=== PATIENT | female | born 1955 | race Caucasian/White ===

== ENCOUNTER 2020-12-05 11:36 | Emergency (ER) | payer OTHER, SELFPAY ==
[2020-12-05 11:40] VITALS: BP 153/77; PULSE 80; RESP 18; TEMP 35.9; O2SAT 97
--- NOTE | 2020-12-05 11:47 | ED.SKABFB ---
HPI - Skin/Abscess/Foreign Bdy General Chief complaint: Skin/Abscess/Foreign Body Stated complaint: bug bite on thigh Time Seen by Provider: 12/05/20 11:47 Source: patient and RN notes reviewed Mode of arrival: ambulatory Limitations: no limitations History of Present Illness HPI narrative: 65-year-old female presents to [facility] with complaints of a bug bite to the inner left thigh for the last week. States that she felt a sting and it has been itchy since, about 1 week. Related Data Home Medications Medication Instructions Recorded Confirmed albuterol sulfate 2 puff INHALATION Q4H PRN 12/05/20 12/05/20 atorvastatin 80 mg PO DAILY 12/05/20 12/05/20 escitalopram oxalate 10 mg PO DAILY 12/05/20 12/05/20 lisinopril 20 mg PO DAILY 12/05/20 12/05/20 mirtazapine 15 mg PO DAILY 12/05/20 12/05/20 naproxen 500 mg PO BID 12/05/20 12/05/20 tramadol 50 mg PO DAILY 12/05/20 12/05/20 Allergies Allergy/AdvReac Type Severity Reaction Status Date / Time Penicillins Allergy Unknown N/V, RASH Verified 01/20/19 10:54 Review of Systems Review of Systems: Narrative: CONSTITUTIONAL: Denies fever, chills, or sweats. EYES: Denies visual changes, redness, or discharge. ENT: Denies rhinorrhea, congestion, sore throat, or otalgia. CARDIOVASCULAR: Denies chest pain, palpitations, or edema. RESPIRATORY: Denies cough or dyspnea. GASTROINTESTINAL: Denies abdominal pain, nausea, vomiting, or diarrhea. GENITOURINARY: Denies dysuria or hematuria. SKIN: Denies rash. Reports itching to the left inner thigh MUSCULOSKELETAL: Denies back pain, joint pain, or myalgia. NEUROLOGIC: Denies headache, numbness, or weakness. PSYCHIATRIC: Denies anxiety or depression. All other systems reviewed are negative, except as documented in HPI. [facility] Social History Social History Gender identity (if verbalized by the patient): Female Comments At the time of my signature, I reviewed and agree with the nursing past medical, surgical, social, and family history. There is no relevant family history pertinent to the patient complaint. Exam Narrative: Exam Narrative: GENERAL: This is a well-nourished, well-developed patient, in no apparent distress. HEAD: normocephalic, atraumatic. EYES: PERRL. Sclera clear/white. Vision is grossly intact. EARS: External ears normal. CARDIOVASCULAR: Regular rate and rhythm without murmurs, gallops, or rubs. RESPIRATORY: Clear to auscultation. Breath sounds equal bilaterally. No wheezes, rales, or rhonchi. GASTROINTESTINAL: Abdomen soft, non-tender. SKIN: warm, dry, intact. Bruising and small scratches noted to the left inner thigh. No increased redness, swelling or warmth to the area. Measures 3 cm x 4 cm. NEURO: awake, alert, and oriented to person, place and time. There were no obvious focal neurologic abnormalities. EXTREMITIES: No joint tenderness, effusion, or edema noted. Course Vital Signs Vital signs: Vital Signs Temperature 96.7 F L 12/05/20 11:40 Pulse Rate 80 12/05/20 11:40 Respiratory Rate 18 12/05/20 11:40 Blood Pressure 153/77 H 12/05/20 11:40 Pulse Oximetry 97 12/05/20 11:40 Temperature 96.7 F L 12/05/20 11:40 Pulse Rate 80 12/05/20 11:40 Respiratory Rate 18 12/05/20 11:40 Blood Pressure 153/77 H 12/05/20 11:40 Pulse Oximetry 97 12/05/20 11:40 Reviewed patient has a history of hypertension. No chest pain, blurry vision or change in vision. MDM - Skin/Abscess/Foreign Bdy MDM Narrative Medical decision making narrative: Discharge instructions reviewed with patient, as well as provided in writing per nursing staff. The instructions also include specific and strict return/GO TO THE ER as well as f/u information. All questions have been answered, and the patient deny any further questions with discharge and discharge plan. Differential Diagnosis Differential diagnosis: Likely abscess of skin or subcutaneous tissue, dermatophytosis
== END 2020-12-05 12:02 | disposition home or self-care (01) ==
PROVIDERS: Emergency Provider Nurse Practitioner; PCP Family Medicine
DX: S70.12XA Contusion of left thigh, initial encounter (principal); X58.XXXA Exposure to other specified factors, initial encounter; S70.362A Insect bite (nonvenomous), left thigh, initial encounter; W57.XXXA Bitten or stung by nonvenomous insect and other nonvenomous arthropods, initial encounter; I10 Essential (primary) hypertension; J45.909 Unspecified asthma, uncomplicated; M19.90 Unspecified osteoarthritis, unspecified site; F41.9 Anxiety disorder, unspecified; F32.9 Major depressive disorder, single episode, unspecified
CPT/HCPCS: 99213; G0463

== ENCOUNTER 2021-08-10 10:54 | Emergency (ER) | payer MEDICARE, MEDICAID, SELFPAY ==
[2021-08-10 11:04] VITALS: BP 142/85; PULSE 86; RESP 18; TEMP 36.3; O2SAT 97
[2021-08-10 11:11] VITALS: BP 142/85; PULSE 86; RESP 18; TEMP 36.3; O2SAT 97
--- NOTE | 2021-08-10 11:30 | ED.URI ---
HPI - URI/Sore Throat General Chief Complaint: Upper Respiratory Infection Stated Complaint: sinus infection Time Seen by Provider: 08/10/21 11:16 Source: patient and RN notes reviewed Mode of arrival: ambulatory Limitations: no limitations History of Present Illness HPI Narrative: Patient presents today with a 3-day history of rhinorrhea, congestion, frontal headache, cough with clear sputum, postnasal drip. Denies fever, sore throat. She has been taking Robitussin and Tylenol with mild relief. History of asthma. Denies sick contacts. MD elicited complaint: cough, nasal congestion and sinus pain Related Data Home Medications Medication Instructions Recorded Confirmed atorvastatin 80 mg PO DAILY 12/05/20 08/10/21 escitalopram oxalate 10 mg PO DAILY 12/05/20 08/10/21 mirtazapine 15 mg PO DAILY 12/05/20 08/10/21 cimetidine 400 mg PO HS 08/10/21 08/10/21 Allergies Allergy/AdvReac Type Severity Reaction Status Date / Time Penicillins Allergy Unknown N/V, RASH Verified 08/10/21 11:09 Review of Systems Review of Systems: CONSTITUTIONAL: Denies body aches, fever, chills, or sweats. EYES: Denies visual changes, redness, or discharge. ENT: Denies sore throat, or otalgia.+ Rhinorrhea, congestion, postnasal drip CARDIOVASCULAR: Denies chest pain, palpitations, or edema. RESPIRATORY: Denies dyspnea.+ Cough GASTROINTESTINAL: Denies abdominal pain, nausea, vomiting, or diarrhea. GENITOURINARY: Denies dysuria or hematuria. SKIN: Denies rash, itching, or wounds. MUSCULOSKELETAL: Denies back pain, joint pain, or myalgia. NEUROLOGIC: Denies numbness, tingling, or weakness.+ Headache PSYCH: Denies depression or anxiety. [facility] Past Medical History Medical History (Updated 08/10/21 @ 11:34 by Zina Zamora, TAMI, BC) Asthma Social History Social History Gender identity (if verbalized by the patient): Female Comments At time of signature, I have reviewed and agree with nursing past medical, surgical, social and family history unless otherwise noted. Please see nursing chart for further information. There is no relevant family history pertinent to the presenting complaint Exam Narrative: GENERAL: Well-appearing, well-nourished, and in no acute distress. HEAD: Normocephalic, atraumatic. EYES: EOMI. No redness or drainage. Conjunctivae normal. ENT: Mucous membranes pink and moist. Nares congested. No rhinorrhea. TMs normal bilaterally. Throat mildly erythematous without edema or exudate. Uvula midline. NECK: Normal AROM. Supple. No lymphadenopathy. CHEST: No respiratory distress. Clear to auscultation. HEART: Regular rate and rhythm. No murmur appreciated. Normal peripheral pulses. EXTREMITIES: Normal range of motion. No edema. SKIN: Warm, dry, no rash. Capillary refill normal. Normal skin turgor. NEURO: No focal deficits. Alert and oriented x3. Gait steady. PSYCH: Normal affect. No signs of depression or anxiety. Course Vital Signs Vital signs: Vital Signs Temperature 97.4 F L 08/10/21 11:04 Pulse Rate 86 08/10/21 11:04 Respiratory Rate 18 08/10/21 11:04 Blood Pressure 142/85 H 08/10/21 11:04 Pulse Oximetry 97 08/10/21 11:04 Temperature 97.4 F L 08/10/21 11:11 Pulse Rate 86 08/10/21 11:11 Respiratory Rate 18 08/10/21 11:11 Blood Pressure 142/85 H 08/10/21 11:11 Pulse Oximetry 97 08/10/21 11:11 Reviewed. Pt has been instructed to follow up with her PCP regarding her elevated blood pressure today. MDM - URI/Sore Throat Differential Diagnosis Differential diagnosis: Likely upper respiratory infection, otitis media, sinusitis, viral infection and bronchitis Critical Care Time Critical Care Time Critical Care Time: No Discharge Plan Discharge Clinical Impression: Viral sinusitis Patient Disposition: Home, Self-Care Condition: Stable Instructions: Sinusitis (ED) Additional Instructions: Jose
== END 2021-08-10 11:38 | disposition home or self-care (01) ==
PROVIDERS: Emergency Provider Nurse Practitioner; PCP Family Medicine
DX: J32.9 Chronic sinusitis, unspecified (principal); J45.909 Unspecified asthma, uncomplicated
CPT/HCPCS: 99211; G0463

== ENCOUNTER 2021-11-24 14:24 | Emergency (ER) | payer MEDICARE, MEDICAID, SELFPAY ==
--- NOTE | ~2021-11-24 | XR_ITS ---
EXAMINATION: XR shoulder RT min 2V DATE: 11/24/2021 14:56 INDICATION: Right shoulder pain. Fall. TECHNIQUE: 5 views of right shoulder were obtained. COMPARISON: None. FINDINGS: Bone alignment is normal. No fracture. Joint spaces are well maintained. IMPRESSION: 1. Normal right shoulder. Reviewed, dictated and finalized at location A. RY KILN OPERATOR IMPRESSION: 1. Normal right shoulder.
[2021-11-24 14:34] VITALS: BP 123/79; PULSE 87; RESP 16; TEMP 36.9; O2SAT 100
--- NOTE | 2021-11-24 15:00 | ED.UPPEXIN ---
HPI - Extremity Injury (Upper) General Chief Complaint: Extremity Injury, Upper Stated Complaint: right shoulder injury Time Seen by Provider: 11/24/21 14:50 Source: patient Mode of arrival: ambulatory Limitations: no limitations History of Present Illness HPI narrative: 66-year-old female presented for complaint of right shoulder pain for over 1 week after fall. States she slipped on the ice a week ago and tried to catch herself, causing her to land on the right arm, she states she hit her head but did not lose consciousness. Endorses headache for a few days after but states she is without headache, nausea, vomiting, dizziness, confusion. Endorses 9 out of 10 right shoulder pain, pain is constant and sharp, worse with movement. Endorses decreased range of motion due to pain. States she has taken ibuprofen, Tylenol, and [id number] pain reliever gel which has not help symptoms. She denies numbness, tingling, weakness of the right upper extremity. Related Data Home Medications Medication Instructions Recorded Confirmed atorvastatin 80 mg PO DAILY 12/05/20 11/24/21 escitalopram oxalate 10 mg PO DAILY 12/05/20 11/24/21 mirtazapine 15 mg PO DAILY 12/05/20 11/24/21 albuterol sulfate 2 puff INHALATION Q4-6H PRN 11/24/21 11/24/21 ergocalciferol (vitamin D2) 1,250 mcg PO WEEKLY 11/24/21 11/24/21 famotidine 20 mg PO DAILY 11/24/21 11/24/21 fluticasone propionate 1 spray INTRANASAL DAILY 11/24/21 11/24/21 lisinopril 20 mg PO DAILY 11/24/21 11/24/21 Allergies Allergy/AdvReac Type Severity Reaction Status Date / Time Penicillins Allergy Unknown N/V, RASH Verified 11/24/21 14:38 Review of Systems Review of Systems: CONSTITUTIONAL: Denies body aches, fever, chills EYES: Denies visual changes ENT: Denies rhinorrhea, congestion CARDIOVASCULAR: Denies chest pain, palpitations, or edema. RESPIRATORY: Denies cough or dyspnea. GASTROINTESTINAL: Denies abdominal pain, nausea, vomiting, or diarrhea. SKIN: Denies rash, itching, or wounds. MUSCULOSKELETAL: Endorses right shoulder pain NEUROLOGIC: Denies headache, numbness, tingling, or weakness. PSYCH: Denies depression or anxiety. All systems reviewed & are unremarkable except as noted in HPI and below PMFSH Past Medical History Medical History Asthma Social History Social History Gender identity (if verbalized by the patient): Female Comments At time of signature, I have reviewed and agree with nursing past medical, surgical, social and family history unless otherwise noted. Please see nursing chart for further information. There is no relevant family history pertinent to the presenting complaint Exam Narrative: GENERAL: Well-appearing, well-nourished, and in no acute distress. HEAD: Normocephalic, atraumatic. EYES: PERRLA, conjunctivae clear NECK: Supple. CHEST: Speaks in full sentences. No respiratory distress. HEART: Regular rate and rhythm. Normal and equal peripheral pulses. EXTREMITIES: Right upper extremity has normal strength and sensation, range of motion is equal bilaterally but endorses pain with movement. Pain with palpation to superior and posterior aspects of right shoulder, No edema or ecchymosis, No open wounds, skin tenting, or obvious deformity; right shoulder appears lower than left; pulse palpable and equal bilaterally, skin warm, dry, pink. Capillary refill less than 3 seconds. SKIN: Warm, dry, no rash. NEURO: Alert and oriented x3. PSYCH: Normal mood and affect Course Course Emergency Course: Patient is aware of diagnosis, understands and agrees to treatment plan. Anticipatory guidance given. Patient agrees to follow-up as directed and is aware of reasons to seek care at the emergency department. Portions of this record may have been created with voice recognition software Level of Care: Express Care Visit Vital Signs Vital signs: Vi
== END 2021-11-24 15:20 | disposition home or self-care (01) ==
PROVIDERS: Emergency Provider Nurse Practitioner Family; PCP Family Medicine
DX: M25.511 Pain in right shoulder (principal); J45.909 Unspecified asthma, uncomplicated
CPT/HCPCS: 73030; 99213; A4565; G0463

== ENCOUNTER 2022-09-20 08:10 | Emergency (ER) | payer MEDICARE, SELFPAY ==
--- NOTE | 2022-09-20 08:12 | ED.URI ---
HPI - URI/Sore Throat General Chief Complaint: Upper Respiratory Infection Stated Complaint: Headache/Sore Throat Time Seen by Provider: 09/20/22 08:12 Source: patient and RN notes reviewed History of Present Illness HPI Narrative: patient is 67-year-old female presents to urgent care with complaints of congestion, headache, cough and sore throat. Patient states that started 5 days ago and she has been using Robitussin and Tylenol. Denies any known fevers or ill exposures. Denies any nausea or vomiting. No other acute complaints. No acute distress noted. Patient aware of the plan of care. Some parts of this dictation were generated by voice recognition software and may contain typographical and/or grammatical inaccuracies. Related Data Home Medications Medication Instructions Recorded Confirmed atorvastatin 80 mg tablet 80 mg PO DAILY 12/05/20 09/20/22 escitalopram oxalate 10 mg tablet 10 mg PO DAILY 12/05/20 09/20/22 mirtazapine 15 mg tablet 15 mg PO DAILY 12/05/20 09/20/22 albuterol sulfate 90 mcg/actuation 2 puff inhalation Q4-6H PRN 11/24/21 09/20/22 aerosol inhaler Shortness Of Breath Or Wheezing ergocalciferol (vitamin D2) 1,250 1,250 mcg PO WEEKLY 11/24/21 09/20/22 mcg (50,000 unit) capsule famotidine 20 mg tablet 20 mg PO DAILY 11/24/21 09/20/22 lisinopril 20 mg tablet 20 mg PO DAILY 11/24/21 09/20/22 Allergies Allergy/AdvReac Type Severity Reaction Status Date / Time Penicillins Allergy Unknown N/V, RASH Verified 09/20/22 08:24 Review of Systems Review of Systems: CONSTITUTIONAL: Denies fever, chills, or sweats. EYES: Denies visual changes, redness, or discharge. ENT: reports of sinus congestion, sore throat CARDIOVASCULAR: Denies chest pain, palpitations, or edema. RESPIRATORY: reports of cough without dyspnea GASTROINTESTINAL: Denies abdominal pain, nausea, vomiting, or diarrhea. GENITOURINARY: Denies dysuria or hematuria. SKIN: Denies rash or itching. MUSCULOSKELETAL: Denies back pain, joint pain, or myalgia. NEUROLOGIC: Reports of headache All other systems reviewed are negative, except as documented in HPI. [facility] Past Medical History Medical History Asthma Social History Social History Gender identity (if verbalized by the patient): Female Comments At the time of my signature, I reviewed and agree with the nursing past medical, surgical, social, and family history. There is no relevant family history pertinent to the patient complaint. Exam Narrative: GENERAL: This is a well-nourished, well-developed patient, in no apparent distress. HEAD: normocephalic, atraumatic. EYES: PERRL. Sclera clear/white. Vision is grossly intact. EARS: External ears normal, auditory canals clear and without drainage, TMs normal without perforation. Hearing grossly intact. NOSE: External nose normal with no obvious nasal discharge, nares without redness, clear rhinorrhea. THROAT: Mucous membranes moist, mild erythema to the posterior pharynx with moderate postnasal drainage NECK: Neck supple, non-tender without lymphadenopathy CARDIOVASCULAR: Regular rate and rhythm without murmurs, gallops, or rubs. RESPIRATORY: scant inspiratory wheeze bibasilar SKIN: warm, intact with no suspicious lesions or rash, good texture and turgor. NEURO: awake, alert, and oriented to person, place and time. There were no obvious focal neurologic abnormalities. EXTREMITIES: No clubbing, cyanosis, or edema. Course Course Level of Care: Express Care Visit Vital Signs Vital signs: Vital Signs Temperature 97.4 F L 09/20/22 08:22 Pulse Rate 84 09/20/22 08:22 Respiratory Rate 16 09/20/22 08:22 Blood Pressure 168/101 H 09/20/22 08:22 Pulse Oximetry 99 09/20/22 08:22 Temperature 97.4 F L 09/20/22 08:22 Pulse Rate 84 09/20/22 08:22 Respiratory Rate 16 09/20/22 08:22 Blood Pressure
[2022-09-20 08:22] VITALS: BP 168/101; PULSE 84; RESP 16; TEMP 36.3; O2SAT 99
== END 2022-09-20 08:34 | disposition home or self-care (01) ==
PROVIDERS: Emergency Provider Nurse Practitioner Family; PCP Family Medicine
DX: J00 Acute nasopharyngitis [common cold] (principal); R05.1 Acute cough; J45.909 Unspecified asthma, uncomplicated
CPT/HCPCS: 99213; G0463

== ENCOUNTER 2023-01-25 10:37 | Emergency (ER) | payer MEDICARE, SELFPAY ==
[2023-01-25 10:42] VITALS: BP 119/82; PULSE 86; RESP 16; TEMP 36.5; O2SAT 97
--- NOTE | 2023-01-25 10:44 | ED.EYEPROB ---
HPI - Eye Problem General Chief complaint: Eye Problems Stated complaint: Eye Problem Time Seen by Provider: 01/25/23 10:40 Source: patient and RN notes reviewed History of Present Illness HPI Narrative: Patient is a 68-year-old female presents to urgent care with complaints of right eye irritation and clear drainage. Patient states it started a week ago and she has been taking Benadryl without relief. Denies any vision changes. Patient does not wear glasses or contacts. Denies any injury to the eye. No other acute complaints. Patient aware of the plan care. Some parts of this dictation were generated by voice recognition software and may contain typographical and/or grammatical inaccuracies. Related Data Home Medications Medication Instructions Recorded Confirmed atorvastatin 80 mg tablet 80 mg PO DAILY 12/05/20 01/25/23 escitalopram oxalate 10 mg tablet 10 mg PO DAILY 12/05/20 01/25/23 mirtazapine 15 mg tablet 15 mg PO DAILY 12/05/20 01/25/23 albuterol sulfate 90 mcg/actuation 2 puff inhalation Q4-6H PRN 11/24/21 01/25/23 aerosol inhaler Shortness Of Breath Or Wheezing ergocalciferol (vitamin D2) 1,250 1,250 mcg PO WEEKLY 11/24/21 01/25/23 mcg (50,000 unit) capsule famotidine 20 mg tablet 20 mg PO DAILY 11/24/21 01/25/23 lisinopril 20 mg tablet 30 mg PO DAILY 11/24/21 01/25/23 Allergies Allergy/AdvReac Type Severity Reaction Status Date / Time Penicillins Allergy Unknown N/V, RASH Verified 01/25/23 10:53 Review of Systems Review of Systems: CONSTITUTIONAL: Denies fever, chills, or sweats. EYES: Reports of clear drainage and irritation to the right eye ENT: Denies rhinorrhea, congestion, sore throat, or otalgia. CARDIOVASCULAR: Denies chest pain, palpitations, or edema. RESPIRATORY: Denies cough or dyspnea. GASTROINTESTINAL: Denies abdominal pain, nausea, vomiting, or diarrhea. GENITOURINARY: Denies dysuria or hematuria. SKIN: Denies rash or itching. MUSCULOSKELETAL: Denies back pain, joint pain, or myalgia. NEUROLOGIC: Denies headache, numbness, or weakness. All other systems reviewed are negative, except as documented in HPI. [facility] Past Medical History Medical History Asthma Social History Social History Gender identity (if verbalized by the patient): Female Comments At the time of my signature, I reviewed and agree with the nursing past medical, surgical, social, and family history. There is no relevant family history pertinent to the patient complaint. Exam Narrative: GENERAL: This is a well-nourished, well-developed patient, in no apparent distress. HEAD: normocephalic, atraumatic. EYES: PERRL.left Sclera clear/white. Mild erythema/irritation to the color of the right with mild injected conjunctiva, and clear drainage. Vision is grossly intact. EARS: External ears normal NOSE: External nose normal with no obvious nasal discharge, nares without redness, no rhinorrhea. THROAT: Mucous membranes moist NECK: Neck supple SKIN: warm, intact with no suspicious lesions or rash, good texture and turgor. NEURO: awake, alert, and oriented to person, place and time. There were no obvious focal neurologic abnormalities. EXTREMITIES: No clubbing, cyanosis, or edema. Course Course Level of Care: Express Care Visit Vital Signs Vital signs: Vital Signs Temperature 97.7 F 01/25/23 10:42 Pulse Rate 86 01/25/23 10:42 Respiratory Rate 16 01/25/23 10:42 Blood Pressure 119/82 01/25/23 10:42 Pulse Oximetry 97 01/25/23 10:42 Oxygen Delivery Room Air 01/25/23 10:42 Temperature 97.7 F 01/25/23 10:54 Pulse Rate 86 01/25/23 10:54 Respiratory Rate 16 01/25/23 10:54 Blood Pressure 119/82 01/25/23 10:54 Pulse Oximetry 97 01/25/23 10:54 Oxygen Delivery Room Air 01/25/23 10:54 Reviewed MDM - Eye Problem MDM Narrative Medical decision making kayla
[2023-01-25 10:54] VITALS: BP 119/82; PULSE 86; RESP 16; TEMP 36.5; O2SAT 97
== END 2023-01-25 11:25 | disposition home or self-care (01) ==
PROVIDERS: Emergency Provider Nurse Practitioner Family; PCP Family Medicine
DX: H57.11 Ocular pain, right eye (principal)
CPT/HCPCS: 99213; G0463

== ENCOUNTER 2024-07-16 18:19 | Emergency (ER) | payer OTHER, SELFPAY ==
[2024-07-16 18:48] VITALS: BP 187/100; PULSE 106; RESP 22; TEMP 37.6
--- NOTE | 2024-07-16 19:03 | ED.URI ---
HPI - URI/Sore Throat General Chief Complaint: Upper Respiratory Infection Stated Complaint: cough/congestion/watery eyes Time Seen by Provider: 07/16/24 18:52 Source: patient, RN notes reviewed and old records reviewed Mode of arrival: ambulatory Limitations: no limitations History of Present Illness HPI Narrative: 69-year-old female to Express Care with complaint of cough for 1 week. Patient states that over the past 2 days she has developed a headache reports that her cough has become deep . Patient hypertensive, tachypneic, tachycardic in triage. Patient reports history of asthma. Patient denies sore throat, ear pain, fever. Patient able to tolerate fluids by mouth. Patient resting in exam room in no acute distress. Respirations even and nonlabored. Patient able to speak in complete sentences without difficulty. Related Data Home Medications Medication Instructions Recorded Confirmed atorvastatin 80 mg tablet 80 mg PO DAILY 12/05/20 01/25/23 escitalopram oxalate 10 mg tablet 10 mg PO DAILY 12/05/20 01/25/23 mirtazapine 15 mg tablet 15 mg PO DAILY 12/05/20 01/25/23 albuterol sulfate 90 mcg/actuation 2 puff inhalation Q4-6H PRN 11/24/21 01/25/23 aerosol inhaler Shortness Of Breath Or Wheezing ergocalciferol (vitamin D2) 1,250 1,250 mcg PO WEEKLY 11/24/21 01/25/23 mcg (50,000 unit) capsule famotidine 20 mg tablet 20 mg PO DAILY 11/24/21 01/25/23 lisinopril 20 mg tablet 30 mg PO DAILY 11/24/21 01/25/23 budesonide-formoterol HFA 160 inhalation 07/16/24 mcg-4.5 mcg/actuation aerosol inhaler (Symbicort) escitalopram oxalate 10 mg tablet mg 07/16/24 ferrous sulfate 325 mg (65 mg mg 07/16/24 iron) tablet fluticasone fur. 100 mcg-umeclid inhalation 07/16/24 62.5 mcg-vilant 25 mcg inhalat.powder (Trelegy Ellipta) Allergies Allergy/AdvReac Type Severity Reaction Status Date / Time Penicillins Allergy Unknown N/V, RASH Verified 01/25/23 10:53 Review of Systems Review of Systems: All systems reviewed & are unremarkable except as noted in HPI and below Constitutional: Constitutional: Reports as per HPI and Reports headache(s) Eyes: Eyes: Reports no additional eye complaints ENT: Reports system reviewed and no additional complaints, except as documented Cardiovascular: Cardiovascular: Reports no additional cardiovascular complaints, Denies chest pain and Denies dyspnea Respiratory: Respiratory: Reports no additional respiratory complaints, Reports cough and Denies dyspnea Musculoskeletal: Musculoskeletal: Reports no additional musculoskeletal complaints Neurologic: Reports system reviewed and no additional complaints, except as documented Psychiatric: Psychiatric: Reports no additional psychiatric complaints [facility] Past Medical History Medical History Asthma Social History Social History Gender identity (if verbalized by the patient): Female Comments At the time of my signature, I reviewed and agree with the nursing past medical, surgical, social, and family history. There is no relevant family history pertinent to the patient complaint. Exam Const: General: no acute distress, alert, ill appearing acutely and chronically, tired appearing, uncomfortable and well nourished Nutritional Appearance: well nourished Orientation/consciousness: patient oriented x3 Limitations: no limitations HENMT: Head: normal to inspection Ears: external ears normal Face/Nose/Sinus: Normal external nose present, Normal nares present, normal facial exam, No erythema and No edema Face and sinus: normal facial exam, no erythema and no edema Mouth: Yes Normal oral and palatal mucosa present Eyes: General: appearance normal, both eyes and all related structures Neck: Neck: normal visual inspection, full ROM and no meningeal signs Chest: Chest palpation & inspection: normal inspection of the chest Resp: Effort & Inspection: normal respiratory effort, able to speak in complete sentences, Actively coughing actively coughing and tachypneic Cardio: Jugular venous distension: no JVD Rate: tachycardic Rhythm: regular rhythm Back/Spine/Pelvis: Cervical Spine: cervical ROM normal Skin: General skin exam: normal color, no rashes or lesions noted and turgor normal Neuro: General: patient oriented x3, gait normal, moves all extremities and no meningeal signs Speech: normal speech Gait exam (Neuro): Normal gait present Extrem: General: normal to inspection, full ROM and capillary refill normal Psych: Appearance: grossly normal and well kempt Course Course Emergency Course: Some parts of this dictation were generated by voice recognition software and may contain typographical and/or grammatical inaccuracies. Level of Care: Express Care Visit Vital Signs Vital signs: Vital Signs Temperature 37.6 C 07/16/24 18:48 Pulse Rate 106 H 07/16/24 18:48 Respiratory Rate 22 H 07/16/24 18:48 Blood Pressure 187/100 H 07/16/24 18:48 Temperature 37.6 C 07/16/24 18:48 Pulse Rate 106 H 07/16/24 18:48 Respiratory Rate 22 H 07/16/24 18:48 Blood Pressure 187/100 H 07/16/24 18:48 reviewed Transfer Transfered to: [facility] Transportation: Other Transfer rationale: Higher level of care Accepting physician: Dr. Chaney Transfer comments: Report called to Ammy PATEL MDM - URI/Sore Throat MDM Narrative Medical decision making narrative: 69-year-old female to Express Care with complaint of cough for 1 week. Patient states that over the past 2 days she has developed a headache reports that her cough has become deep . Patient hypertensive, tachypneic, tachycardic in triage. Patient reports history of asthma. Patient denies sore throat, ear pain, fever. Patient able to tolerate fluids by mouth. Patient resting in exam room in no acute distress. Respirations even and nonlabored. Patient able to speak in complete sentences without difficulty. patient reports that she has been tracking her blood pressure at home and states that it was 130s over 80s this morning. Patient is sitting uncomfortably in exam room nontoxic in appearance. Patient appropriate for transfer to [facility] emergency department Transfer instructions reviewed with patient, including strict orders to report directly to the emergency department. Patient offered EMS transport. Patient declined and prefers private vehicle. Patient verbalized understanding. Some parts of this dictation were generated by voice recognition software and may contain typographical and/or grammatical inaccuracies. Differential Diagnosis Differential diagnosis: Likely upper respiratory infection, croup, otitis media, sinusitis, viral infection, bronchitis, influenza and pharyngitis Discharge Plan Discharge Clinical Impression: Cough Patient Disposition: Acute Care Hospital Condition: Stable Prescriptions: No Action atorvastatin 80 mg tablet 80 mg PO DAILY mirtazapine 15 mg Tablet 15 mg PO DAILY escitalopram oxalate 10 mg Tablet 10 mg PO DAILY ferrous sulfate 325 mg (65 mg iron) tablet escitalopram oxalate 10 mg tablet budesonide-formoterol [Symbicort] 160-4.5 mcg/actuation HFA aerosol inhaler INHALATION Trelegy Ellipta 100-62.5-25 mcg blister with device INHALATION famotidine 20 mg tablet 20 mg PO DAILY albuterol sulfate 90 mcg/actuation HFA aerosol inhaler 2 puff INHALATION Q4-6H PRN (Reason: Shortness Of Breath Or Wheezing) ergocalciferol (vitamin D2) 1,250 mcg (50,000 unit) capsule 1,250 mcg PO WEEKLY lisinopril 20 mg tablet 30 mg PO DAILY polymyxin B sulf-trimethoprim [Polytrim] 10,000 unit- 1 mg/mL drops 1 drp RIGHT EYE Q3H 7 Days Qty: 10 0RF Rx Instructions: while awake; do not exceed 6 doses in 24 hours Follow-up/Referrals: Angel,Guilherme Barton MD [Primary Care Provider] -
== END 2024-07-16 19:18 | disposition short-term general hospital (02) ==
LOC: EXPBETH 18:24
PROVIDERS: Emergency Provider Nurse Practitioner Family; PCP Family Medicine
DX: R05.9 Cough, unspecified (principal); I10 Essential (primary) hypertension; J45.909 Unspecified asthma, uncomplicated
CPT/HCPCS: 99212; G0463